=== PATIENT | male | born 1975 | race Caucasian/White ===

== ENCOUNTER 2019-04-22 20:19 | Emergency (ER) | payer OTHER ==
[~2019-04-22] VITALS: Ht 167.6 cm; Wt 54.5 kg
[2019-04-22 20:28] VITALS: Ht 167.6 cm; Wt 54.5 kg
[2019-04-22 21:25] LABS: BASOPHILS 0.3 % (0-2); EOSINOPHILS 1.5 % (0-7); HEMATOCRIT 42.1 % (42.0-54.0); HEMOGLOBIN 14.8 g/dL (13.5-17.5); IMMATURE GRANULOCYTES 0.1 % (0-5); LYMPHOCYTES 12.6 % (15-50); MCH 32.7 pg (26.0-34.0); MCHC 35.2 g/dL (31.0-37.0); MCV 93.1 fL (80.0-100.0); MEAN PLATELET VOLUME 9.5 fL (7.4-10.4); MONOCYTES 5.9 % (2-11); NEUTROPHILS 79.6 % (40-80); PLATELET COUNT 205 10x3/uL (130-400); RBC 4.52 10x6/uL (4.20-6.10); RDW 12.4 % (11.5-14.5); WBC 8.6 10x3/uL (4.8-10.8)
[2019-04-22 22:00] LABS: ALBUMIN 4.3 g/dL (3.4-5.0); ALKALINE PHOSPHATASE 64 U/L (46-116); ALT (SGPT) 28 U/L (10-68); BILIRUBIN - TOTAL 0.69 mg/dL (0.2-1.3); CALC OSMOLALITY 280 mosm/kg (275-300); CALCIUM 9.7 mg/dL (8.5-10.1); CARBON DIOXIDE 30.8 mmol/L (21.0-32.0); CHLORIDE - SERUM 100 mmol/L (98-107); CREATININE - SERUM 0.9 mg/dL (0.6-1.3); GLUCOSE 107 mg/dL (74-106); POTASSIUM - SERUM 4.3 mmol/L (3.5-5.1); PROTEIN - SERUM 8.4 g/dL (6.4-8.2); SODIUM 139 mmol/L (136-145); UREA NITROGEN 20 mg/dL (7-18); eGFR NON AFRICAN AMERICAN > 90 mL/min (90-120)
[2019-04-22 22:24] LABS: CKMB 2.5 U/L (0.0-3.6); CREATINE KINASE 67 UL (21-232); MAGNESIUM - SERUM 2.2 mg/dL (1.8-2.4)
[2019-04-22 22:26] LABS: TROPONIN-I < 0.017 ng/mL (0.000-0.060)
[2019-04-22 23:48] VITALS: BP 132/74
[2019-06-19 14:24] VITALS: Ht 167.6 cm; Wt 54.5 kg
== END 2019-04-22 23:48 | disposition home or self-care (01) ==
LOC: D.ER 20:19
PROVIDERS: Family Medicine
DX: S01.01XA Laceration without foreign body of scalp, initial encounter (principal); W19.XXXA Unspecified fall, initial encounter; G91.9 Hydrocephalus, unspecified

== ENCOUNTER → 2019-06-02 12:39 | Outpatient (CLI) | payer OTHER ==
[2019-04-22 20:28] VITALS: BMI 19.4
--- NOTE | 2019-06-02 13:53 | NUR ---
7521 ELIZABETH FROM MRI RADIOLOGY BROUGHT PT OVER. MEALRDERED. PT AWAKE ALERT AND ORIENTED X3. ORIENTED TO ROOM.
--- NOTE | 2019-06-02 14:27 | NUR ---
TIME OUT WAS PERFORMED AT 1310HRS W DR MIRANDA, ELIZABETH Tuttle AND COSNTANZA BURGESS. PT DENIES ANY ALLERGIES OR USE OF BLOOD THINNERS. CISTERNOGRAM INJECTION WAS PERFORMED AT 1330 HRS. AL
--- NOTE | 2019-06-02 15:01 | NUR ---
1500 REPORT FROM IVAN DIALLO RN. PT A/A, HOB ELEVATED TO 30 DEGREES HAS FAMILY AT BEDSIDE. STATES IS "ALRIGHT" REVIEWED NEEDS TO REST FOR NEXT 4 HOURS, WITH HEAD ELEVATED BUT CAN HAVE BRP STATES CAN DO THAT AN DRINK LOTS OF FLUIDS. STATES CAN DO THAT.
--- NOTE | 2019-06-02 17:36 | NUR ---
1700 TO [facility]IA [facility]. TO BE RELEASED FROM THERE.
[2019-06-22 12:43] VITALS: BMI 14.8
== END | disposition home or self-care (01) ==
LOC: D.NM 12:39
PROVIDERS: ATTEND Neurological Surgery
DX: G91.9 Hydrocephalus, unspecified (principal)

== ENCOUNTER 2019-06-04 10:14 | Emergency (ER) | payer OTHER ==
[~2019-06-04] VITALS: Ht 167.6 cm; Wt 45.5 kg
[2019-06-04 10:19] VITALS: BP 131/80; Ht 167.6 cm; Wt 45.5 kg
== END 2019-06-04 13:23 | disposition home or self-care (01) ==
LOC: D.ER 10:14
DX: G91.9 Hydrocephalus, unspecified (principal); R51 Headache

== ENCOUNTER 2019-06-17 07:52 | Inpatient (IN) | payer OTHER ==
[~2019-06-17] VITALS: Ht 167.6 cm; Wt 41.7 kg
--- NOTE | ~2019-06-17 | OP ---
PATIENT NAME: LINDY WILLOUGHBY MEDICAL RECORD: [id number] :[birth year] LOCATION:D.MS [id number] ADMISSION DATE:06/19/19 SURGEON: HOWARD RAMON MD DATE OF OPERATION: 06/19/2019 PREOPERATIVE DIAGNOSIS: Communicating hydrocephalus. POSTOPERATIVE DIAGNOSIS: Communicating hydrocephalus. PROCEDURE: Right ventriculoperitoneal shunt at right Jett's point, PS Medical Delta valve level 1. SURGEON: Howard Ramon MD DESCRIPTION AND TECHNIQUE: After induction of general endotracheal anesthesia, the patient's right frontal scalp, parietal scalp, temporal scalp, neck, chest and abdomen were prepped and draped in the usual sterile fashion. Three incisions were made, one over the right Jett's point with a curvilinear scalp incision. Hemostasis was maintained within all 3 incisions and counter incision of the right mastoid and then an incision in the abdominal wall just above the umbilicus into the left of midline. The abdominal wall incision dissection took place through the subcutaneous fat with Bovie cautery. The anterior rectus sheath was incised with Metzenbaum scissors. The rectus muscle was spread. The posterior rectus sheath was incised with Metzenbaum scissors. Peritoneal cavity was identified and tented upward. This was incised with Metzenbaum scissors. There were loops of small bowel to confirm the peritoneal cavity. A Midas Vahid drill was used to create a jill hole over the right Jett's point. The dura was opened in a cruciate manner with bipolar cautery and #11 blade. A tunnel was created from the scalp incision to the counter incision behind the mastoid. A tunneling device was used to create a tunnel subcutaneously from the right mastoid to the abdominal incision. A brain needle was used to cannulate the right frontal horn. The ventricular portion of the catheter was placed in the right frontal horn. The valve and peritoneal catheter tunneled from the scalp incision to the counter incision and from the counter incision to the abdominal incision. The tunneling device was removed. There was good egress of CSF from the peritoneal catheter. The galea was closed with interrupted 2-0 Vicryl suture. The skin was closed with jessie. The fascia was closed with a counter incision. The skin was closed with jessie. At the abdominal wound, the peritoneal catheter was deposited in the peritoneal cavity. The peritoneum was closed with a pursestring style suture with a chromic gut suture. The anterior and posterior sheaths of the rectus muscle were closed with interrupted 3-0 Vicryl suture. The subdermal layer was closed with interrupted 3-0 Vicryl suture. The skin was closed with jessie. A sterile dressing was applied to all 3 wounds. The patient was awakened in good condition and taken to recovery. All counts were reported as correct. Estimated blood loss was minimal. TRANSINT:[id number] Voice Confirmation ID: [id number] DOCUMENT ID: [id number] OPERATIVE REPORT [id number] LINDY WILLOUGHBY JOHN MD CC: [id number] DICTATION DATE: 08/13/1949 NEIGHBORHOOD AIDE: 08/13/19 1045 DIS IN 06/25/19 [id number] [place] [address]
[2019-06-19] VITALS (10 sets, daily range): BP systolic 95–115; BP diastolic 61–74; BMI 14.9; BMI 14.8
[2019-06-19 08:45] LABS: BASOPHILS 0.6 % (0-2); EOSINOPHILS 3.7 % (0-7); HEMOGLOBIN 14.1 g/dL (13.5-17.5); IMMATURE GRANULOCYTES 0.2 % (0-5); LYMPHOCYTES 19.7 % (15-50); MCHC 34.4 g/dL (31.0-37.0); MONOCYTES 11.9 % (2-11); NEUTROPHILS 63.9 % (40-80); PLATELET COUNT 223 10x3/uL (130-400); RBC 4.41 10x6/uL (4.20-6.10); RDW 12.7 % (11.5-14.5); WBC 5.4 10x3/uL (4.8-10.8)
[2019-06-19 08:47] LABS: CALC OSMOLALITY 274 mosm/kg (275-300); CALCIUM 9.8 mg/dL (8.5-10.1); CARBON DIOXIDE 28.3 mmol/L (21.0-32.0); CHLORIDE - SERUM 103 mmol/L (98-107); CREATININE - SERUM 0.5 mg/dL (0.6-1.3); GLUCOSE 88 mg/dL (74-106); POTASSIUM - SERUM 5.1 mmol/L (3.5-5.1); SODIUM 137 mmol/L (136-145); UREA NITROGEN 19 mg/dL (7-18); eGFR NON AFRICAN AMERICAN > 90 mL/min (90-120)
--- NOTE | 2019-06-19 14:15 | NUR ---
PATIENT ADMITTED TO ROOM 2212. IV TO LEFT HAND PATENT WITHOUT REDNESS. DRSGS X 2 TO RIGHT HEAD C/D/I. DRSG TO LLQ C/D/I. ADMISSION COMPLETE. REQUESTED AND GIVEN SPRITE AND PRN TYLENOL FOR HEADACHE. DENIES FURTHER NEEDS. FAMILY AT BEDSIDE. BED LOW. FALL PRECAUTIONS IN PLACE. CALL FREDERICK AND PERSONAL ITEMS IN REACH.
[2019-06-20] VITALS: BP 118/73
--- NOTE | 2019-06-20 | NUR ---
PT HAVING DIFFICULTY VOIDING, ONLY ABLE TO VOID 50 CC'S AT TIME. STATES HE "FEELS LIKE HE REALLY NEEDS TO GO". BLADDER SCANNED 601. PERFORMED IN/OUT CATH AND RECEIVED 650 CC'S STRAW COLOR URINE. NO OTHER NEEDS. HOB AT 20 DEGREES. ASSISTED PT TO TURN. WILL CONTINUE TO MONITOR.
[2019-06-20 04:00] VITALS: BP 108/73
--- NOTE | 2019-06-20 08:12 | NUR ---
AWAKE AND ALERT. ORIENTED TO SELF. RESPONDS APPROPRIATLY TO QUESTIONS. DENIES NEEDS. SKIN IS INTACT WITHOUT REDNESS. THERE ARE 4 SITES WITH DRY INTACT DRESSINGS IN PLACE. IV TO RIGHT HAND IS PATENT WITHOUT REDNESS AT INSERTION SITE. IS VOIDING IN URINAL WITHOUT DIFFICUTLY. DENIES NEEDS. MOM AT BEDSIDE.
[2019-06-20 08:18] VITALS: BP 109/67
--- NOTE | 2019-06-20 08:43 | NUR ---
HAD SMALL AMOUNT OF EMESIS. C/O NAUSEA. GIVEN 4MG ZOFRAN SLOW IVP FOR SAME. WILL MONITOR.
--- NOTE | 2019-06-20 09:30 | NUR ---
PATIENT IS AGITATED THAT HASN'T ROUNDED YET. DISCUSSED REASONS FOR SAME. WILL MONITOR.
--- NOTE | 2019-06-20 11:00 | NUR ---
INCONTINENT OF URINE. SKIN CARE AND LINENS CHANGED PER STAFF. DENIES NEEDS. SIGNIFICANT OTHER AT BEDSIDE.
--- NOTE | 2019-06-20 13:00 | NUR ---
ATE PART OF LUNCH. INCONTINENT OF URINE AGAIN. SKIN CARE AND LINENS CHANGED PER STAFF. DENIES NEEDS.
[2019-06-20 13:11] VITALS: BP 121/78
--- NOTE | 2019-06-20 15:30 | NUR ---
DR. LIZARRAGA HERE. NEW ORDERS RECEIVED TO BE UP WITH ASSISTANCE AND COULD ROLL ONTO SIDE. DENIES NEEDS.
--- NOTE | 2019-06-20 17:13 | NUR ---
RESTING QUIETLY IN BED AT THIS TIME. DENIES NEEDS.
--- NOTE | 2019-06-20 18:19 | NUR ---
ATE ABOUT HALF OF SUPPER. FATHER AT BEDSIDE. DENIES NEEDS. NO CHANGES NOTED.
[2019-06-20 20:00] VITALS: BP 125/84
[2019-06-21] VITALS: BP 111/71
[2019-06-21 04:00] VITALS: BP 118/78
--- NOTE | 2019-06-21 08:25 | NUR ---
AWAKE AND ALERT. ORIENTED X3. NO C/O THIS AM. DRESSINGS TO HEAD AND SIDE DRY AND INTACT. LUNGS ARE CLEAR BILATERALLY, NO COUGH NOTED. SKIN IS INTACT WITHOUT REDNESS EXCEPT INCISIONS TO HEAD. SL TO RIGHT HAND IS PATENT WITHOUT REDNESS AT INSERTION SITE. DENIES NEEDS. FAMILY AT BEDSIDE.
[2019-06-21 08:43] VITALS: BP 109/70
--- NOTE | 2019-06-21 10:00 | NUR ---
AMBULATED IN HYDE WITH PT. BALANCE POOR.
[2019-06-21 12:27] VITALS: BP 111/67
--- NOTE | 2019-06-21 12:30 | NUR ---
LUNCH SERVED IN ROOM. FAMILY HERE. DENIES NEEDS.
--- NOTE | 2019-06-21 15:00 | NUR ---
RESTING QUIETLY IN BED. DENIES NEEDS. FAMILY IN ROOM.
[2019-06-21 16:57] VITALS: BP 129/87
--- NOTE | 2019-06-21 18:26 | NUR ---
ATE ONLY A FEW BITES OF SUPPER. C/O HEADACHE. REQUESTED AND GIVEN 2 HYDROCODONE PO FOR SAME. WILL MONITOR. NO CHANGES NOTED. DENIES NEEDS.
[2019-06-21 20:00] VITALS: BP 118/73
[2019-06-22 04:00] VITALS: BP 123/78
[2019-06-22 08:20] VITALS: BP 129/75
[2019-06-22 12:43] VITALS: Ht 167.6 cm; Wt 41.7 kg
[2019-06-22 12:55] VITALS: BP 161/83
--- NOTE | 2019-06-22 13:24 | MORECARE ---
CASE MANAGEMENT DISCHARGE SUMMARY PATIENT: LINDY WILLOUGHBY UNIT: [id number] ADM DATE: 06/19/19 AGE: 43 : [birth year] SEX: M ROOM/BED: D.2212 AUTHOR: RA MONSIVAIS PHYSICIAN: REFERRING PHYSICIAN: HOWARD LIZARRAGA MD DATE OF SERVICE: 06/22/19 Discharge Plan Patient Name: LINDY WILLOUGHBY [facility] [facility] 1975 Planned Disposition: Inpatient Rehab Anticipated Discharge Date: Discharge Date: Expected LOS: Initial Reviewer: [email or web address] Initial Review Date: 06/19/2019 Generated: 06/22/19 2:24 pm DCPIA - Discharge Planning Initial Assessment Updated by [id number]: Radha Aguiar on 06/22/19 1:23 pm * Is the patient Alert and Oriented? Yes * How many steps to enter\exit or inside your home? * PCP * [facility] * Preadmission Environment Home with Family * ADLs Independent * Equipment None * List name and contact numbers for known caregivers / representatives who currently or will assist patient after discharge: EVELYN (MOTHER) [phone] * Verbal permission to speak to the caregivers and representatives has been obtained from the patient. Yes * Community resources currently utilized None * Additional services required to return to the preadmission environment? Yes * Can the patient safely return to the preadmission environment? No * Has this patient been hospitalized within the prior 30 days at any hospital? No External Providers External Provider: [facility] Contact Date: Service Request Date: Service Type: Resolution: Reviewer: Comments: Patient Name: LINDY WILLOUGHBY Page [phone] at 1324 All edits/amendments must be made on the electronic document DICTATION DATE: 06/22/19 1324 CABLE FERRYBOAT OPERATOR: YANA 06/22/19 1324 RPT#: [id number] DC DATE: STATUS: ADM IN [facility] [address] [place] [address] END OF REPORT
--- NOTE | 2019-06-22 13:32 | MORECARE ---
CASE MANAGEMENT DISCHARGE SUMMARY PATIENT: LINDY WILLOUGHBY UNIT: [id number] ADM DATE: 06/19/19 AGE: 43 : [birth year] SEX: M ROOM/BED: D.2212 AUTHOR: RA MONSIVAIS PHYSICIAN: REFERRING PHYSICIAN: HOWARD LIZARRAGA MD DATE OF SERVICE: 06/22/19 Discharge Plan Patient Name: LINDY WILLOUGHBY Facility[facility]:[place] : 1975 Planned Disposition: Inpatient Rehab Anticipated Discharge Date: Discharge Date: Expected LOS: Initial Reviewer: [email or web address] Initial Review Date: 06/19/2019 Generated: 06/22/19 2:32 pm Comments DCP- Discharge Planning Updated by [email or web address]: Radha Aguiar on 06/22/19 12:[address] Patient Name: LINDY WILLOUGHBY Admission Status: Elective Accout number: [id number] Admission Date: 06-19-2019 : 1975 Admission Diagnosis: Attending: HOWARD LIZARRAGA Current LOS: 3 Anticipated DC Date: Planned Disposition: Inpatient Rehab Primary Insurance: [employer] POS Discharge Planning Comments: CM met with patient to complete initial dc planning assessment. CM educated patient on the CM role and verbal consent given by patient to complete assessment. Patient lives at home with his girlfriend where he states he is independent with his care. At discharge patient would like to go to rehab across from [facility]. YOLANDA signed with [facility]. CM discussed availability of home health, rehab services, and medical equipment. He stated that he has an appointment for hearing aid fitting tomorrow at 1:30 & is worried about that. He does not use any DME at this time. Patient denied known discharge needs at this time. CM will continue to follow and will assist as needed with dc plans/needs. Industrial Maintenance Tech: Radha Aguiar DCPIA - Discharge Planning Initial Assessment Updated by [id number]: Radha Aguiar on 06/22/19 1:23 pm * Is the patient Alert and Oriented? Yes * How many steps to enter\exit or inside your home? * PCP * [facility] * Preadmission Environment Home with Family * ADLs Independent * Equipment None * List name and contact numbers for known caregivers / representatives who currently or will assist patient after discharge: EVELYN (MOTHER) [phone] * Verbal permission to speak to the caregivers and representatives has been obtained from the patient. Yes * Community resources currently utilized None * Additional services required to return to the preadmission environment? Yes * Can the patient safely return to the preadmission environment? No * Has this patient been hospitalized within the prior 30 days at any hospital? No Coverage Notice Reviewer: [email or web address] Mich Aguiar Notice Issued Date-Time: 06/22/2019 13:10 Notice Type: Patient Choice Letter Notice Delivered To: Patient Relationship to Patient: Business Services Administrator Name: Delivery Method: HAND - Hand Delivered Camryn Days: Prior Verbal Notification: Recipient Understood Notice: Yes Recipient Signature: Yes Med Rec Note Co-signed by Attending: Coverage Notice Comment: yolanda for encompassed Last DP export: 06/22/19 12:24 p Patient Name: LINDY WILLOUGHBY Page [phone] at 1332 All edits/amendments must be made on the electronic document DICTATION DATE: 06/22/19 1332 ACCOUNTING OFFICE MANAGER: YANA 06/22/19 1332 RPT#: [id number] DC DATE: STATUS: ADM IN [facility] [address] [place] [address] END OF REPORT
--- NOTE | 2019-06-22 13:56 | MORECARE ---
CASE MANAGEMENT DISCHARGE SUMMARY PATIENT: LINDY WILLOUGHBY UNIT: [id number] ADM DATE: 06/19/19 AGE: 43 : [birth year] SEX: M ROOM/BED: D.2212 AUTHOR: RA MONSIVAIS PHYSICIAN: REFERRING PHYSICIAN: HOWARD LIZARRAGA MD DATE OF SERVICE: 06/22/19 Discharge Plan Patient Name: LINDY WILLOUGHBY Facility: [facility]:[place] : 1975 Planned Disposition: Inpatient Rehab Anticipated Discharge Date: Discharge Date: Expected LOS: Initial Reviewer: [email or web address] Initial Review Date: 06/19/2019 Generated: 06/22/19 2:56 pm Comments DCP- Discharge Planning Updated by [id number]: Radha Aguiar on 06/22/19 12:[address] Spoke with Sayra at [facility] about patients hearing aid appointment & trying to figure out a way to get him his appointment when he is DC from the hospital. CM to follow and assist with DC planning [facility] # [phone] DCP- Discharge Planning Updated by [id number]: Radha Aguiar on 06/22/19 12:[address] Patient Name: LINDY WILLOUGHBY Admission Status: Elective Accout number: [id number] Admission Date: 06-19-2019 : 1975 Admission Diagnosis: Attending: HOWARD LIZARRAGA Current LOS: 3 Anticipated DC Date: Planned Disposition: Inpatient Rehab Primary [facility] POS Discharge Planning Comments: CM met with patient to complete initial dc planning assessment. CM educated patient on the CM role and verbal consent given by patient to complete assessment. Patient lives at home with his girlfriend where he states he is independent with his care. At discharge patient would like to go to rehab across from [facility]. YOLANDA signed with [facility]. CM discussed availability of home health, rehab services, and medical equipment. He stated that he has an appointment for hearing aid fitting tomorrow at 1:30 & is worried about that. He does not use any DME at this time. Patient denied known discharge needs at this time. CM will continue to follow and will assist as needed with dc plans/needs. School Attendance Secretary: Radha Aguiar DCPIA - Discharge Planning Initial Assessment Updated by [id number]: Radha Aguiar on 06/22/19 1:23 pm * Is the patient Alert and Oriented? Yes * How many steps to enter\exit or inside your home? * PCP * [facility] * Preadmission Environment Home with Family * ADLs Independent * Equipment None * List name and contact numbers for known caregivers / representatives who currently or will assist patient after discharge: EVELYN (MOTHER) [phone] * Verbal permission to speak to the caregivers and representatives has been obtained from the patient. Yes * Community resources currently utilized None * Additional services required to return to the preadmission environment? Yes * Can the patient safely return to the preadmission environment? No * Has this patient been hospitalized within the prior 30 days at any hospital? No Coverage Notice Reviewer: [email or web address] - Radha Aguiar Notice Issued Date-Time: 06/22/2019 13:10 Notice Type: Patient Choice Letter Notice Delivered To: Patient Relationship to Patient: Room Service Food Service Attendant Name: Delivery Method: HAND - Hand Delivered Camryn Days: Prior Verbal Notification: Recipient Understood Notice: Yes Recipient Signature: Yes Med Rec Note Co-signed by Attending: Coverage Notice Comment: yolanda for encompassed Last DP export: 06/22/19 12:32 p Patient Name: LINDY WILLOUGHBY Page [phone] at 1356 All edits/amendments must be made on the electronic document DICTATION DATE: 06/22/19 1356 EQUIPMENT OPERATOR WAREHOUSE: YANA 06/22/19 1356 RPT#: [id number] DC DATE: STATUS: ADM IN [facility] [address] [place] [address] END OF REPORT
--- NOTE | 2019-06-22 14:40 | NUR ---
OT NOTE: PT COMPLETED SUPINE TO SIT WITH MIN A. PT COMPLETED EOB SITTING WITH CGA. PT COMPLETED ADL MOB WITH CGA/MIN A. PT COMPLETED KELL/DOFF SOCK WITH CGA. PT COMPLETED FACE WASH WITH SET UP. PT EXHIBITED DECREASED BALANCE AND IS AT INCREASED RISK FOR FALLS. THANK YOU,JESSICA PABLO
[2019-06-22 16:36] VITALS: BP 132/78
--- NOTE | 2019-06-22 19:26 | NUR ---
ASSESSMENT COMPLETED SABINA AM. PT IS WITHOUT DISTRESS.HOPES TO DC IN AM. REMAINS WITHIOUT CHANGE.CONT PLAN OF CARE
--- NOTE | 2019-06-22 19:45 | NUR ---
PT AMBULATING IN THE HYDE WITH HIS MOM. HE DENIES PAIN OR NEEDS. HE STATES HE IS GOING TO REHAB TOMORROW. WILL CONTINUE TO MONITOR.
[2019-06-22 20:00] VITALS: BP 120/79
[2019-06-23 04:00] VITALS: BP 116/76
--- NOTE | 2019-06-23 08:15 | NUR ---
PATIENT IN BED WITH IV INTACT. NO COMPLAINTS OR SIGNS OF DISTRESS. EYES CLOSED RESTING QUIETLY. CALL LIGHT WITHIN REACH. FAMILY AT BEDSIDE.
[2019-06-23 09:52] VITALS: BP 113/71
[2019-06-23 12:40] VITALS: BP 132/91
[2019-06-23 16:45] VITALS: BP 112/79
--- NOTE | 2019-06-23 18:45 | NUR ---
PATIENT UP AMBULATING IN HYDE WITH MOM. NO COMPLAINTS OR SIGNS OF DISTRESS.
[2019-06-23 20:00] VITALS: BP 102/64
[2019-06-24 04:00] VITALS: BP 94/54
--- NOTE | 2019-06-24 07:00 | NUR ---
ALERT AND ORIENTED, RESTING IN BED. NO C/O PAIN. NO S/S OF ACUTE DISTRESS NOTED. [place]. BUNNY TO RIGHT CRANIUM, BUNNY TO ABDOMEN. 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 IV TO RIGHT HAND, SL. SITE PATENT WITHOUT REDNESS OR SWELLING. DENIES ANY NEEDS AT THIS TIME. CALL LIGHT IN REACH. WILL CONTINUE TO MONITOR.
[2019-06-24 09:48] VITALS: BP 114/73
--- NOTE | 2019-06-24 11:00 | NUR ---
I have reviewed this patient and I concur with the Shift Assessment completed by the Licensed Practical Nurse today this shift.
[2019-06-24 13:23] VITALS: BP 124/67
[2019-06-24 13:44] VITALS: BP 127/78
--- NOTE | 2019-06-24 14:32 | NUR ---
OT NOTE: PT CONT TO PERFORM BED MOB INCLUDING SUPINE TO SIT INDEP; ABLE TO KELL SOCKS AND SHORTS WITH MIN/SET UP; REQUIRES MIN ASSIST FOR CLOTHING MGMT DUE TO DECREASED BALANCE. REUQIRES ASSIST WITH IN ROOM AMBULATION DUE TO UNSTEADY GAIT. FÁTIMA RAI, OTR/L
--- NOTE | 2019-06-24 16:55 | NUR ---
OT NOTE: PT COMPLETED BED MOB WITH SPV. PT COMPLETED EOB SITTING BALANCE WITH SPV. PT COMPLETED ADL MOB WITH RW REQURIED CGA. PT COMPLETED KELL SOCKS AT EOB WITH SET UP. THANK YOU,JESSICA PABLO
[2019-06-24 16:59] VITALS: BP 112/77
--- NOTE | 2019-06-24 19:20 | NUR ---
LYING IN BED WITH FAMILY AT BEDSIDE. NO COMPLAINTS OTHER THAN WANTING TO GO TO REHAB. ABLE TO VOICE ALL NEEDS. WILL NOTE ANY CHANGE.
[2019-06-24 21:19] VITALS: BP 103/67
[2019-06-25 01:43] VITALS: BP 107/76
--- NOTE | 2019-06-25 05:05 | NUR ---
I have reviewed this patient and I concur with the Shift Assessment completed by the Licensed Practical Nurse today this shift.
[2019-06-25 06:35] VITALS: BP 125/86
--- NOTE | 2019-06-25 07:15 | NUR ---
ALERT AND ORIENTED, RESTING IN BED WITH EYES CLOSED. RESPIRATIONS EVEN AND UNLABORED. NO C/O PAIN. NO S/S OF ACUTE DISTRESS NOTED. BUNNY TO RIGHT SIDE OF HEAD AND BUNNY TO ABDOMEN. [place]. BLIND IN LEFT EYE. IV TO RIGHT HAND, SL. SITE PATENT WITHOUT REDNESS OR SWELLING. DENIES ANY NEEDS AT THIS TIME. CALL LIGHT IN REACH. WILL CONTINUE TO MONITOR.
[2019-06-25 08:40] VITALS: BP 116/69
--- NOTE | 2019-06-25 11:04 | NUR ---
NUTRITION F/U PT TOLERATING REG DIET WITH 50% INTAKE BREAKFAST. 100% INTAKE BOOST. WILL CONTINUE TO PROVIDE DIET AND BOOST. MONITOR PO INTAKE. RD FOLLOWING
--- NOTE | 2019-06-25 11:20 | NUR ---
I have reviewed this patient and I concur with the Shift Assessment completed by the Licensed Practical Nurse today this shift.
--- NOTE | 2019-06-25 11:24 | MORECARE ---
CASE MANAGEMENT DISCHARGE SUMMARY PATIENT: LINDY WILLOUGHBY UNIT: [id number] ADM DATE: 06/19/19 AGE: 43 : [birth year] SEX: M ROOM/BED: D.2212 AUTHOR: RA MONSIVAIS PHYSICIAN: REFERRING PHYSICIAN: HOWARD LIZARRAGA MD DATE OF SERVICE: 06/25/19 Discharge Plan Patient Name: LINDY WILLOUGHBY Facility: [facility]:[place] : 1975 Planned Disposition: Inpatient Rehab Anticipated Discharge Date: Discharge Date: Expected LOS: Initial Reviewer: [email or web address] Initial Review Date: 06/19/2019 Generated: 06/25/19 12:24 pm Comments DCP- Discharge Planning Updated by [id number]: Radha Aguiar on 06/25/19 10:[address] PATIENT HAS BEEN ACCEPTED TO [facility] AT [facility], HIS PARENTS WILL TRANSPORT HIM. PATIENT WILL GO TO [facility] AT3:00PM TO GET HEARING AIDS THEN WILL ADMIT TO INPATIENT REHAB. I SPOKE WITH VANIA AT [facility] CM TO FOLLOW AND ASSIST NEEDED DCP- Discharge Planning Updated by [email or web address]: Radha Aguiar on 06/22/19 12:[address] Spoke with Sayra at [facility] about patients hearing aid appointment & trying to figure out a way to get him his appointment when he is DC from the hospital. CM to follow and assist with DC planning [facility] # [phone] DCP- Discharge Planning Updated by [id number]: Radha Aguiar on 06/22/19 12:[address] Patient Name: LINDY WILLOUGHBY Admission Status: Elective Accout number: [id number] Admission Date: 06-19-2019 : 1975 Admission Diagnosis: Attending: HOWARD LIZARRAGA Current LOS: 3 Anticipated DC Date: Planned Disposition: Inpatient Rehab [facility] Discharge Planning Comments: CM met with patient to complete initial dc planning assessment. CM educated patient on the CM role and verbal consent given by patient to complete assessment. Patient lives at home with his girlfriend where he states he is independent with his care. At discharge patient would like to go to rehab across from [facility]. YOLANDA signed with [facility]. CM discussed availability of home health, rehab services, and medical equipment. He stated that he has an appointment for hearing aid fitting tomorrow at 1:30 & is worried about that. He does not use any DME at this time. Patient denied known discharge needs at this time. CM will continue to follow and will assist as needed with dc plans/needs. Trimming Department Blocker: Radha Aguiar DCPIA - Discharge Planning Initial Assessment Updated by [id number]: Radha Aguiar on 06/22/19 1:23 pm * Is the patient Alert and Oriented? Yes * How many steps to enter\exit or inside your home? * PCP MAURITIAN * [facility] * Preadmission Environment Home with Family * ADLs Independent * Equipment None * List name and contact numbers for known caregivers / representatives who currently or will assist patient after discharge: EVELYN (MOTHER) [phone] * Verbal permission to speak to the caregivers and representatives has been obtained from the patient. Yes * Community resources currently utilized None * Additional services required to return to the preadmission environment? Yes * Can the patient safely return to the preadmission environment? No * Has this patient been hospitalized within the prior 30 days at any hospital? No Coverage Notice Reviewer: [id number] - Radha Aguiar Notice Issued Date-Time: 06/22/2019 13:10 Notice Type: Patient Choice Letter Notice Delivered To: Patient Relationship to Patient: Entry Analyst Name: Delivery Method: HAND - Hand Delivered Camryn Days: Prior Verbal Notification: Recipient Understood Notice: Yes Recipient Signature: Yes Med Rec Note Co-signed by Attending: Coverage Notice Comment: yolanda for encompassed Last DP export: 06/22/19 12:56 p Patient Name: LINDY WILLOUGHBY Page [phone] at 1124 All edits/amendments must be made on the electronic document DICTATION DATE: 06/25/19 112 CONVEYOR CONSOLE OPERATOR: YANA 06/25/19 112 RPT#: [id number] DC DATE: STATUS: ADM IN [facility] [address] [place] [address] END OF REPORT
[2019-06-25 13:00] VITALS: BP 106/70
--- NOTE | 2019-06-25 13:32 | NUR ---
CALLED REPORT [facility] SPOKE TO SANDRITA.
--- NOTE | 2019-06-25 14:18 | NUR ---
DISCHARGED PATIENT WITH FAMILY TO GO TO INPATIENT REHAB AT [facility], VIA WHEELCHAIR ACCOMPANIED BY HOSPITAL STAFF. DISCONTINUED IV, CATHETER TIP INTACT. WENT OVER DISCHARGE INSTRUCTIONS WITH PATIENT, VERBALIZED UNDERSTANDING. DENIES ANYTHING FURTHER.
--- NOTE | 2019-06-28 13:56 | MORECARE ---
CASE MANAGEMENT DISCHARGE SUMMARY PATIENT: LINDY WILLOUGHBY UNIT: [id number] ADM DATE: 06/19/19 AGE: 43 : [birth year] SEX: M ROOM/BED: D.2212 AUTHOR: RA MONSIVAIS PHYSICIAN: REFERRING PHYSICIAN: HOWARD LIZARRAGA MD DATE OF SERVICE: 06/28/19 Discharge Plan Patient Name: LINDY WILLOUGHBY Facility: [facility]:[place] : 1975 Planned Disposition: Inpatient Rehab Anticipated Discharge Date: Discharge Date: 06/25/2019 Expected LOS: Initial Reviewer: [email or web address] Initial Review Date: 06/19/2019 Generated: 06/28/19 2:56 pm Comments DCP- Discharge Planning Updated by [email or web address]: Radha Aguiar on 06/25/19 10:[address] PATIENT HAS BEEN ACCEPTED TO [facility] AT [facility], HIS PARENTS WILL TRANSPORT HIM. PATIENT WILL GO TO [facility] AT3:00PM TO GET HEARING AIDS THEN WILL ADMIT TO INPATIENT REHAB. I SPOKE WITH VANIA AT [facility] CM TO FOLLOW AND ASSIST NEEDED DCP- Discharge Planning Updated by [id number]: Radha Aguiar on 06/22/19 12:[address] Spoke with Sayra at [facility] about patients hearing aid appointment & trying to figure out a way to get him his appointment when he is DC from the hospital. CM to follow and assist with DC planning [facility] # [id number] DCP- Discharge Planning Updated by [email or web address]: Radha Aguiar on 06/22/19 12:[address] Patient Name: LINDY WILLOUGHBY Admission Status: Elective Accout number: [id number] Admission Date: 06-19-2019 : 1975 Admission Diagnosis: Attending: HOWARD LIZARRAGA Current LOS: 3 Anticipated DC Date: Planned Disposition: Inpatient Rehab [facility] Discharge Planning Comments: CM met with patient to complete initial dc planning assessment. CM educated patient on the CM role and verbal consent given by patient to complete assessment. Patient lives at home with his girlfriend where he states he is independent with his care. At discharge patient would like to go to rehab [facility] from [facility]. YOLANDA signed with [facility]. CM discussed availability of home health, rehab services, and medical equipment. He stated that he has an appointment for hearing aid fitting tomorrow at 1:30 & is worried about that. He does not use any DME at this time. Patient denied known discharge needs at this time. CM will continue to follow and will assist as needed with dc plans/needs. Director News: Radha Aguiar DCPIA - Discharge Planning Initial Assessment Updated by [email or web address]: Radha Aguiar on 06/22/19 1:23 pm * Is the patient Alert and Oriented? Yes * How many steps to enter\exit or inside your home? * PCP THAI * Pharmacy [facility] * Preadmission Environment Home with Family * ADLs Independent * Equipment None * List name and contact numbers for known caregivers / representatives who currently or will assist patient after discharge: EVELYN (MOTHER) [phone] * Verbal permission to speak to the caregivers and representatives has been obtained from the patient. Yes * Community resources currently utilized None * Additional services required to return to the preadmission environment? Yes * Can the patient safely return to the preadmission environment? No * Has this patient been hospitalized within the prior 30 days at any hospital? No Coverage Notice Reviewer: [id number] - Radha Aguiar Notice Issued Date-Time: 06/22/2019 13:10 Notice Type: Patient Choice Letter Notice Delivered To: Patient Relationship to Patient: Sales Process Manager Name: Delivery Method: HAND - Hand Delivered Camryn Days: Prior Verbal Notification: Recipient Understood Notice: Yes Recipient Signature: Yes Med Rec Note Co-signed by Attending: Coverage Notice Comment: yolanda for encompassed Last DP export: 06/25/19 10:24 Patient Name: LINDY WILLOUGHBY Page [id number] at 1356 All edits/amendments must be made on the electronic document DICTATION DATE: 06/28/19 1356 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
== END 2019-06-25 14:19 | DRG 31 ==
LOC: D.MS 06-19 07:28 → D.SDCHOLD 06-19 07:28 → D.M2 06-19 09:30 → D.SDCHOLD 06-19 09:45 → D.MS 06-19 14:17
PROVIDERS: Anesthesiology; ADMIT Neurological Surgery; ATTEND Neurological Surgery
PROC: 00160J6 Bypass Cerebral Ventricle to Peritoneal Cavity with Synthetic Substitute, Open Approach (ICD-10-PCS; principal; 2019-06-19 09:30)
DX: G91.2 (Idiopathic) normal pressure hydrocephalus (principal); E43 Unspecified severe protein-calorie malnutrition